=== PATIENT | male | born 1980 | race Caucasian/White ===

== ENCOUNTER 2024-10-19 10:31 | Outpatient (AMB) | payer MEDICARE, MEDICAID, SELFPAY ==
[2024-10-19 11:13] VITALS: BP 128/74; PULSE 73; RESP 18; O2SAT 100; BMI 28.3
--- NOTE | 2024-10-19 11:13 | MHC.OFFVIS ---
Vital Signs 10/19/24 11:13 Height 5 ft 11 in Weight 203 lb BMI 28.3 BP 128/74 Blood Pressure Location Lt brachial Respiration 18 Pulse 73 Pulse Source Pulse Oximeter Pulse Oximetry (%) 100 Oxygen Delivery Method Room Air Intake Visit Reasons: Chronic Low Back Pain w/ Left Sciatica Allergies No Known Allergies Allergy (Verified 10/19/24 11:17) HPI Comments Details: Meir is a very pleasant 44 years old gentleman who presents with my office with complaints of pain in lower back with radiation into the left lower extremity. She reports numbness in the left lower extremity in the posterior calf, he reports tingling burning and itching sensation on the solar surface of the left foot. 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 Because of his pain he can not sleep normally can not do activities of daily living he is able to take care of himself but he can not function normally. He is on permanent disability and retired because of psychological issues. He is self mobile. Weather changes aggravate his pain. Oral medications and application of the call make his pain better. The pain is constant and intermittent at the same time. In terms of tissue damage she describes his pain as pulsing, throbbing, pounding, stabbing, lancinating, sharp, cutting, laceration, pinching, cramping, crushing, tingling, stinging, dial, protein, heavy, tiring, exhausting, diet, squeezing, tearing sensation. Because of his pain he believes that he has left lower leg circumferences smaller than the right however in fact when we measured it his right lower leg circumference is 1-1/2 inch bigger. The full physical exam see is below. He had x-ray in [facility] which demonstrated L3-L4 and L4-5 disc space narrowing and minor spurring of the endplates at this levels, there is also facet arthropathy at this levels and no other findings. Chiropractic manipulations for 10 years, he is very active he is exercising playing basketball. He never received any injections. His past medical history significant for headaches, fatigue, dizziness and fainting, history of heavy drinking, history of gout related to alcohol intake. Nevro surgeries. He stopped smoking 6 months ago, he stopped drinking alcohol 6 years ago. He drinks coffee and caffeinated beverages and he denies recreational drugs. Review of Systems Const All systems reviewed & are unremarkable except as noted in HPI and below ENT Reports Normal hearing present Neuro Reports Normal hearing present, Denies Abnormal speech present and Denies Sensory deficit (Neuro) Physical Exam Vital Signs: Last Vital Signs Pulse 73 10/19/24 11:13 Resp 18 10/19/24 11:13 BP 128/74 10/19/24 11:13 Pulse Ox 100 10/19/24 11:13 Oxygen Delivery Method Room Air 10/19/24 11:13 BMI result Body Mass Index 28.3 Const General: no acute distress Nutritional Appearance: average body habitus, well nourished and other (Well-developed and athletic.) Orientation/consciousness: patient oriented x3 Eyes General: appearance normal, both eyes and all related structures Pupils: Equal, round and reactive pupils present EOM: EOMs intact bilaterally Neck Neck: Yes full ROM Chest Chest palpation & inspection: normal inspection of the chest Resp Effort & Inspection: normal respiratory effort, able to speak in complete sentences, normal respiratory pattern, no audible wheezes and no cough Cardio Jugular venous distension: no JVD GI Inspection: Yes normal to inspection Back/Spine/Pelvis Other: I able to stand on bilateral tiptoes in bilateral heels without difficulty. Able to dorsiflex both 1st toes without lifting the rest of the toes without difficulty. Flexing forward aggravate his pain. SLR on the left aggravates the pain. SLR on the right is negative. Oli test is negative, pelvic compression test is negative, Valsalva maneuver is negative for pain increase. On the palpation of the lumbar spine there is no tenderness on palpation for entire lumbar spine however patient reports severe tenderness on palpation in projection of approximately S1. The palpation of this area causes pain radiation all the way to the posterior surface of the left lower extremity to the surface of the left foot sole. Neuro General: patient oriented x3 and gait normal Cranial nerves: Yes CN's II-XII intact bilaterally, Yes Equal, round and reactive pupils present, Yes Normal hearing present and Yes Ability to bilaterally elevate shoulders present Speech: No Abnormal speech present Gait exam (Neuro): Normal gait present Motor exam (neuro): 5/5 motor strength present throughout Sensory Exam: No Sensory deficit (Neuro) Extrem General: No pedal edema Psych Speech and movement: Normal speech and movement present Affect: normal affect Attitude: cooperative Thought process: Normal thought process present Thought content: Normal thought content present Insight: Good insight present (Psych) Judgement: Good judgement present (Psych) Assessment & Plan Assessment & Plan (1) Spondylosis of lumbosacral spine with radiculopathy: Code(s): M47.27 - Other spondylosis with radiculopathy, lumbosacral region Category: Medical (2) Chronic pain syndrome: Code(s): G89.4 - Chronic pain syndrome Category: Medical (3) Radiculopathy, lumbosacral region: Code(s): M54.17 - Radiculopathy, lumbosacral region Category: Medical Plan With the diagnosis of radiculopathy of lumbosacral region I will send this patient for the MRI of the lumbar spine. I instructed the patient to give us a call and schedule appointment with me as soon as the MRI will be finished. I will examine the MRI and decide on whether further treatment with neurosurgeon required for this patient or we can try transforaminal epidural steroid injections. Possibility exists that this is just a unusual presentation of facet arthropathy and then he will be offered the treatment for spondylosis including medial branch blocks RFA face and or sprint PNS. Orders: Orders MR lumbar spine wo con Today M47.27 - Other spondylosis with radiculopathy, lumbosacral region, M54.17 - Radiculopathy, lumbosacral region Coding Level of Care Code New Pt Level 3 (57638) Diagnoses Spondylosis of lumbosacral spine with radiculopathy M47.27 Chronic pain syndrome G89.4 Radiculopathy, lumbosacral region M54.17
--- OUTSIDE RECORDS SUMMARY | 2024-10-19 11:55 | XMS_ITS | Clinical Summary ---
Author Organization [facility] [address] [facility] Address [address] [place] [phone] Phone Care Team Providers Care Direct Support Staff Name Role Phone Akshat Dean MD Primary Care Provider Allergies No known active allergies Medications cetirizine (ZyrTEC) 10 mg tablet TAKE 1 TABLET BY MOUTH EVERY DAY 90 tablet 1 4 Active fluticasone propionate (FLONASE) 50 mcg/actuation nasal spray 1 Archer by Nasal route daily. 4 Active buPROPion XL (WELLBUTRIN XL) 300 mg 24 hr tablet Take 1 tablet (300 mg total) by mouth 1 (one) time each day in the morning. 90 tablet 1 5 Active busPIRone (BUSPAR) 5 mg tablet TAKE 1 TABLET (5 MG TOTAL) BY MOUTH 3 (THREE) TIMES A DAY IF NEEDED (ANXIETY). 270 tablet 5 Active cyclobenzaprine (FLEXERIL) 10 mg tabletIndications: Spondylosis of lumbar region without myelopathy or radiculopathy Take 1 tablet (10 mg total) by mouth at bedtime as needed for muscle spasms. 30 tablet 3 5 Active gabapentin (NEURONTIN) 100 mg capsule Take 1 capsule (100 mg total) by mouth 2 (two) times a day. 60 each 3 5 Active levothyroxine (SYNTHROID, LEVOTHROID) 100 mcg tablet Take 1 tablet (100 mcg total) by mouth 1 (one) time each day. 90 each 1 Active Active Problems Problem Noted Date Diagnosed Date Transaminitis 11/12/2023 Anxiety and depression 03/29/2023 Allergic rhinitis 05/19/2021 Hypothyroidism 12/25/2020 Overview (01/26/2024): Positive antibodies History of alcohol abuse 09/22/2020 Overview (01/26/2024): Sober x 2.5 years Bipolar disorder, in partial remission, most recent episode depressed ([facility] V24, [facility] V28) 09/04/2020 Current every day smoker 09/04/2020 History of cocaine abuse ([facility] V24, [facility] V 28) 09/04/2020 Overview (01/26/2024): And Hx of crack cocaine use. Encounters Date Type Department Care Team Description 09/12/2024 Telephone Adult Medicine [address] [phone] Akshat Dean MD 08/29/2024 10:00 AM EDT Office Visit Adult Medicine [address] [phone] Akshat Dean MD Chronic left-sided low back pain with left-sided sciatica (Primary Dx); Acquired hypothyroidism; Transaminitis; Anxiety and depression; Spondylosis of lumbar region without myelopathy or radiculopathy from Last 3 Months Immunizations Name Administration Dates Next Due Influenza Quadravalent, MDCK , 0.5ml, preservative free (Flucelvax) 6mo and older 12/23/2020 Influenza trivalent, 0.5mL, preservative free (Fluarix; FluLaval; Fluzone) ages 6mo and older (Afluria) 3 years and older 10/26/2017,09/21/2016 Td Tetanus diptheria (Tdvax) 7yo and older 09/20 Surgical History Surgery Date Site/Laterality Comments OTHER SURGICAL HISTORY PROCEDURE: DENIES PREVIOUS SURGERY Medical History Medical History Date Comments Bipolar disorder ([facility] V24, [facility] V28) DX:Bipolar disorder (HCC) Family History Medical History Relation Name Comments Other: abuse Father Relation Name Status Comments Father Social History Tobacco Use Types Packs/Day Years Used Date Smoking Tobacco: Former Cigarettes Smokeless Tobacco: Never Alcohol Use Standard Drinks/Week Comments Not Currently 0 (1 standard drink = 0.6 oz pur e alcohol) Sex and Gender Information Value Date Recorded Sex Assigned at Not on file Legal Sex Male 6:01 AM EST Gender Identity Not on file Sexual Orientation Not on file Obstetrics History Last Filed Vital Signs Vital Sign Reading Time Taken Comments Blood Pressure 128/82 08/29/2024 9:40 AM EDT Pulse 64 08/29/2024 9:40 AM EDT Temperature 35.8 C (96.4 F) 08/29/2024 9:40 AM EDT Respiratory Rate 18 08/29/2024 9:40 AM EDT Oxygen Saturation - - Inhaled Oxygen Concentration - - Weight 92.1 kg (203 lb) 08/29/2024 9:40 AM EDT Height 180.3 cm (5' 11 ) 08/29/2024 9:40 AM EDT Body Mass Index 28.31 08/29/2024 9:40 AM EDT Plan of Treatment Upcoming Encounters Date Type Department Care Team (Late st Contact Info) Description 03/01/2025 10:30 AM EST Office Visit Adult Medicine [address] [phone] Akshat Dean MD [address] [place] [address] Health Maintenance Due Date Last Done Comments Hepatitis B Vaccines (1 of 3 - 19+ 3-dose series) 01/05/2000 HIV Screening 01/24/2022 Hepatitis C Screening 01/24/2022 Medicare Annual Wellness Visit 01/24/2022 Social Influencers of Health Screening 01/24/2022 Depression Screening 02/16/2024 COVID-19 Vaccine ( - 2023-2 5 season) 2024 Influenza Vaccine (#1) 2024 , 10/26/2017, 09/21/2016 Cholesterol Screening (Lipid Panel) 04/26/2028 04/27/2023 DTaP,Tdap,and Td Vaccines (2 - Td or Tdap) 09/20/2030 09/20/2020 HIB Vaccines Aged Out No longer eligi ble based on patient's age to complete this topic HPV Vaccines Aged Out No longer eligi ble based on patient's age to complete this topic Hepatitis A Vaccines Aged Out No long er eligible based on patient's age to complete this topic IPV Vaccines Aged Out No longer eligi ble based on patient's age to complete this topic MMR Vaccines Aged Out No longer eligi ble based on patient's age to complete this topic Meningococcal ACWY Vaccine Aged Out N o longer eligible based on patient's age to complete this topic Meningococcal B Vaccine Aged Out No l onger eligible based on patient's age to complete this topic Pneumococcal Vaccine: Pediatrics (0 to 5 Years) and At-Risk Patients (6 to 49 Years) Aged Out No longer eligible b ased on patient's age to complete this topic RSV Immunization Patients Under 20 months Aged Out No longer eligible b ased on patient's age to complete this topic Varicella Vaccines Aged Out No longer eligible based on patient's age to complete this topic Procedures Procedure Name Priority Date/Time Associated Diagnosis Comments TRIIODOTHYRONINE FREE Routine 08/29/2024 9:17 AM EDT Acquired hypothyroidism FREE THYROXINE WITH REFLEX TO FREE TRIIODOTHYRONINE Routine 08/29/2024 9:17 AM EDT Acquired hypothyroidism THYROID STIMULATING HORMONE WITH REFLEX TO FREE T4 AND FREE T3 Routine 08/29/2024 9:17 AM EDT Acquired hypothyroidism COMPREHENSIVE METABOLIC PANEL Routine 08/29/2024 9:17 AM EDT Transaminitis Anxiety and depression Spondylosis of lumbar region without myelopathy or radiculopathy LIPID PANEL Routine 04/27/2023 from Last 3 Months or Most Recently Relevant to Health Maintenance Results * (ABNORMAL) Thyroid stimulating hormone with reflex to free t4 and free t3 (08/29/2024 9:17 AM EDT) TSH 11.16(H) 0.40 - 4.00 mcIU/mL LAB CHEMISTRY METHOD 08/29/2024 3:13 PM EDT [facility] Blood Venous blood specimen / Unknown Venipuncture / Unknown 08/29/2024 9:17 AM EDT 08/29/2024 9:17 AM EDT Akshat Dean MD LAB BLOOD ORDERABLES Final Result Performing Organization Address City/[facility]/ZIP Co de Phone Number [facility] [address] [place] [address], [place] [phone] * Free thyroxine with reflex to free triiodothyronine (08/29/2024 9:17 AM EDT) Free T4 1.58 0.70 - 1.80 ng/dL LAB CHEMISTRY METHOD 08/29/2024 5:13 PM EDT [facility] Blood Venous blood specimen / Unknown Venipuncture / Unknown 08/29/2024 9:17 AM EDT 08/29/2024 9:17 AM EDT Akshat Dean MD LAB BLOOD ORDERABLES Final Result Performing Organization Address City/[facility]/ZIP Co de Phone Number [facility] [address] [place] [address], [place] [phone] * Triiodothyronine free (08/29/2024 9:17 AM EDT) T3, Free 279 230 - 420 pcg/dL LAB CHEMISTRY METHOD 08/29/2024 7:33 PM EDT [facility] Blood Venous blood specimen / Unknown Venipuncture / Unknown 08/29/2024 9:17 AM EDT 08/29/2024 9:17 AM EDT us Akshat Dean MD LAB BLOOD ORDERABLES Final Result [facility] [address] [place] [address], * Comprehensive metabolic panel (08/29/2024 9:17 AM EDT) Sodium 137 133 - 145 mmol/L LAB CHEMISTRY METHOD 08/29/2024 2:30 PM EDT [facility] Potassium 4.0 3.5 - 5.5 mmol/L LAB CHEMISTRY METHOD 08/29/2024 2:30 PM [facility] Chloride 104 96 - 110 mmol/L LAB CHEMISTRY METHOD 08/29/2024 2:30 PM [facility] CO2 28 21 - 32 mmol/L LAB CHEMISTRY METHOD 08/29/2024 2:30 PM [facility] Anion Gap 5 3 - 11 LAB CHEMISTRY METHOD 08/29/2024 2:30 PM [facility] Glucose 99 70 - 100 mg/dL LAB CHEMISTRY METHOD 08/29/2024 2:30 PM [facility] BUN 15 5 - 25 mg/dL LAB CHEMISTRY METHOD 08/29/2024 2:30 PM [facility] Creatinine 1.24 0.70 - 1.30 mg/dL LAB CHEMISTRY METHOD 08/29[facility]24 2:[facility] 74 >=60 mL/min/1. 73m2 LAB CHEMISTRY METHOD 08/29/2024 2:30 PM [facility] Comment:Calculation based on the Chronic Kidney Disease Epidemiology Collaboration (CKD-EPI) equation refit without adjustment for race. BUN/Creatinine Ratio 12.1 LAB CHEMISTRY METHOD 08/29/2024 2:30 PM [facility] Calcium 9.7 8.5 - 10.5 mg/dL LAB CHEMISTRY METHOD 08/29/2024 2:30 PM [facility] AST (SGOT) 28 10 - 42 unit/L LAB CHEMISTRY METHOD 08/29/2024 2:30 PM EDT [facility] ALT (SGPT) 26 10 - 60 unit/L LAB CHEMISTRY METHOD 08/29/2024 2:30 PM EDT [facility] Alkaline Phosphatase 96 42 - 121 unit/L LAB CHEMISTRY METHOD 08/29/2024 2:30 PM EDT [facility] Total Protein 7.3 6.0 - 8.0 g/dL LAB CHEMISTRY METHOD 08/29/2024 2:30 PM EDT [facility] Albumin 4.6 3.2 - 5.0 g/dL LAB CHEMISTRY METHOD 08/29/2024 2:30 PM EDT [facility] Total Bilirubin 0.4 0.0 - 1.4 mg/dL LAB CHEMISTRY METHOD 08/29/2024 2:30 PM EDT [facility] Blood Venous blood specimen / Unknown Venipuncture / Unknown 08/29/2024 9:17 AM EDT 08/29/2024 9:17 AM EDT Akshat Dean MD LAB BLOOD ORDERABLES Final Result [facility] [address] [place] [address], * (ABNORMAL) Lipid panel (04/27/2023) LDL/HDL Ratio 4 0 - 4 Triglycerides 131 0 - 150 mg/dL Cholesterol 139 0 - 200 mg/dL HDL 39(A) >=40 mg/dL LDL Cholesterol 74 0 - 100 mg/dL Blood Venous blood specimen / Unknown Damian Provider LAB BLOOD ORDERABLES Norah l Result from Last 3 Months or Most Recently Relevant to Health Maintenance Insurance MEDICARE MEDICAID - [place] Care Teams Direct Support Staff Relationship Specialty Start Date End Date Akshat Dean MD [address] [place] [address] PCP - General Internal Medicine 10/03/21
--- OUTSIDE RECORDS SUMMARY | 2024-10-19 11:55 | XMS_ITS ---
Author Name [facility] Organization Unknown Care Team Organization Name Specialty Phone Email Start Date End Da te [facility] Chandni Chambers Primary Care 07/24/2022 4 [facility] Hetal Batista Primary Care 02/23/2022 024
== END 2024-10-19 11:42 | disposition home or self-care (01) ==
LOC: HO.PMC 10:32
PROVIDERS: PCP Internal Medicine; Visit Provider Anesthesiology
DX: M47.27 Other spondylosis with radiculopathy, lumbosacral region (principal); G89.4 Chronic pain syndrome
CPT/HCPCS: 99203

== ENCOUNTER → 2024-10-19 10:31 | Outpatient (BNVA) | payer MEDICARE, MEDICAID, SELFPAY | PROVIDERS: PCP Internal Medicine; Visit Provider Anesthesiology | DX: M47.27 Other spondylosis with radiculopathy, lumbosacral region (principal); G89.4 Chronic pain syndrome | CPT/HCPCS: 99202 ==

== ENCOUNTER 2024-10-26 19:33 | Outpatient (REF) | payer MEDICARE, MEDICAID, SELFPAY ==
--- NOTE | ~2024-10-26 | MR_ITS ---
EXAMINATION: MR LUMBAR SPINE WITHOUT CONTRAST CLINICAL INFORMATION: M47.27. Other spondylosis with radiculopathy, lumbosacral region. COMPARISON: None available. TECHNIQUE: MRI of the lumbar spine was obtained using routine sequences without contrast. FINDINGS: Last rib-bearing vertebra labeled T12. Bone marrow STIR signal at the left pedicle, left facet and left transverse processes of L5. Decreased intervertebral disc height and signal at L4-5 and L5-S1. Multilevel small marginal osteophyte formation from T12-L1 to L5-S1. The alignment is normal. The conus medullaris ends at the intervertebral disc height L1-2 with normal signal. T12-L1: No central spinal canal or neuroforamina stenosis. L1-2: No herniated disc. No neuroforamina stenosis. L2-3: Broad-based disc bulging. Facet joint hypertrophy. Decreased AP diameter of the thecal sac. No neuroforamina stenosis. No compression upon neural elements. L3-4: Broad-based disc bulging. Facet joint and ligamentum flavum hypertrophy. Reduced AP diameter of the thecal sac and neuroforamina likely encroaching the neural elements. L4-5: Broad-based disc bulging. Facet joint and ligamentum flavum hypertrophy resulting in CSF effacement of the thecal sac central spinal canal stenosis and bilateral neuroforamina stenosis compressing the neural elements in both thecal sac and the L4 exiting nerve roots. L5-S1: Left central subarticular and foraminal broad-based herniated disc compressing the left S1 nerve root on its lateral recess and the left L5 nerve root at the neural foramen. There is CSF effacement of the thecal sac and compression of the neural elements of the thecal sac. Facet joint and ligamentum flavum flavum hypertrophy. Left neuroforamina stenosis. Right neuroforamina and narrowing. No prevertebral compartment hematoma, mass or fluid collection. MR/MR lumbar spine wo con IMPRESSION: Central/left subarticular and foraminal broad-based herniated disc at L5-S1 compressing the neural elements of the thecal sac and the left L5 nerve root. Central spinal canal stenosis and left greater than right neuroforamina stenosis at L5-S1 on a multifactorial basis. Central spinal canal and bilateral neuroforamina stenosis at L4-5 on a degenerative basis compressing the neural elements. Spondylosis L3-4. Electronically signed by: Peterson Mack MD 10/27/2024 07:08 AM EDT
== END 2024-10-26 19:34 | disposition home or self-care (01) ==
LOC: HO.MRI 19:33
PROVIDERS: PCP Internal Medicine; Visit Provider Anesthesiology
DX: M47.27 Other spondylosis with radiculopathy, lumbosacral region (principal)
CPT/HCPCS: 72148

== ENCOUNTER → 2024-10-26 19:39 | Outpatient (BNV) | payer MEDICARE, MEDICAID, SELFPAY | PROVIDERS: PCP Internal Medicine; Visit Provider Radiology Diagnostic Radiology | DX: M51.17 Intervertebral disc disorders with radiculopathy, lumbosacral region (principal) | CPT/HCPCS: 72148 ==

== ENCOUNTER 2024-11-02 13:35 | Outpatient (AMB) | payer MEDICARE, MEDICAID, SELFPAY ==
[2024-11-02 13:49] VITALS: BMI 27.9
--- NOTE | 2024-11-02 13:49 | HO.SPINEOV ---
Vital Signs 11/02/24 13:49 Height 5 ft 11 in Weight 200 lb BMI 27.9 Intake Visit Reasons: spinal stenosis Intake Note: Mr. Bob is here today c/o low back pain. 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 He is a very nice 44-year-old gentleman, presents for evaluation of 10 years of left leg pain. He does not recall a specific event when the pain started, but it has been gradually getting worse over time. He is very active, plays basketball quite a bit and generally just tries to get through it but the pain has been very intense lately, feels like fire going down his leg. He is still able to run and do some activities but it is under intense pain and he will have to compensate for that by taking lcqz-uxa-xqvchvb pain medications like ibuprofen, Tylenol etc.. He was recently started on steroids and muscle relaxers by his PCP. That did not do much. He has been seeing a chiropractor for years. He does not generally get much in the way of significant improvement but it does help some. He comes in today with an MRI showing severe stenosis at L3-4 and disc herniation on the left at L4-5. He has never done any formal physical therapy, has never had any injections. PMH: He has a history of hypothyroidism, he was an alcoholic but quit about 7 years ago. He reports being told at 1 point his liver enzymes were slightly elevated, and they can fluctuate but they are not significantly enough elevated to be considered cirrhosis. He has never had surgery. In other than that he has no systemic disease to report. Social hx: Quit smoking about a year ago, quit drugs and alcohol 7 years ago. Medications: Levothyroxine, cyclobenzaprine, Flonase, BuSpar and bupropion Allergies: No known drug allergies Physical exam: Awake alert oriented no acute distress, his gait is antalgic, strength is normal with decreased reflex at the Achilles and patella on the left. Positive straight leg raise at 30 degrees. Imaging review: Lumbar MRI done at [place] shows transitional anatomy, in terms of numbering, the radiologist is calling the bottom most disc S1-S2, but according to the vascular anatomy it looks more like a traditional L5-S1 so I am going to refer as the lowest disc being L5-S1. At L4-5 on the left he has a herniated disc compressing the left L5 nerve root, and moderate to severe stenosis at L3-4. Impression: 44-year-old male presents for evaluation of 10 years of progressively worsening left leg pain which radiates from his low back all the way down to his lateral thigh, anterior thigh as well as going into his calf. It feels like fire and burning with feelings of numbness in itchiness. 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 While he has done no formal physical therapy, Dr. Farrell and I looked at his films and feel and feel he would be a good candidate for left L3-4 decompression and left L4-5 microdiskectomy. We have tentatively scheduled him for December 12. The patient was given risk and benefits of surgery including but not limited to infection, hematoma, nerve injury, durotomy, weakness, bowel/bladder injury, persistent pain, recurrent disc herniation. We also discussed the option to continue with conservative treatment and patient wishes to proceed with surgery. They are aware they should stop NSAIDs 7 days prior to surgery. All questions were answered to the best of our ability. If there is anything about this patients medical history that we have overlooked or concerns you have about us proceeding with surgery we would appreciate any input you can offer Thank you for allowing us to care for your patient. The total time spent with this visit with this patient was 45 minutes reviewing history, physical exam, lumbar imaging review, and implementation of treatment plan or further diagnostic testing Segundo Farrell MD,PhD [facility] Coding Level of Care Code New Pt Level 4 (35969) Diagnoses Radiculopathy, lumbosacral region M54.17
--- OUTSIDE RECORDS SUMMARY | 2024-11-02 15:37 | XMS_ITS | Clinical Summary ---
Author Organization [facility] [address] [facility] Address [address] [place] [phone] Phone Care Team Providers Care Band Tumbler Name Role Phone Akshat Dean MD Primary Care Provider Allergies No known active allergies Medications cetirizine (ZyrTEC) 10 mg tablet TAKE 1 TABLET BY MOUTH EVERY DAY 90 tablet 1 4 Active fluticasone propionate (FLONASE) 50 mcg/actuation nasal spray 1 [place] by Nasal route daily. 4 Active buPROPion [...] in partial remission, most recent episode depressed ([facility] V24, [facility] V28) 09/04/2020 Current every day smoker 09/04/2020 History of cocaine abuse ([facility] V24, [facility] V 28) 09/04/2020 Overview (01/26/2024): And Hx of crack cocaine use. Encounters Date Type Department Care Team Description 09/12/2024 Telephone Adult Medicine [address] [phone] Akshat Dean MD 08/29/2024 10:00 AM EDT Office Visit Adult Medicine [address] [phone] Akshat Dean MD Chronic left-sided low back [...] History Medical History Date Comments Bipolar disorder ([facility] V24, [facility] V28) DX:Bipolar disorder (HCC) Family [...] 10:30 AM EST Office Visit Adult Medicine [address] [phone] Akshat Dean MD [address] [place] [address] Health Maintenance Due Date Last Done Comments [...] (2 - Td or Tdap) 09/20/2030 09/20/2020 RSV Immunization Adult Patients (1 - 1-dose 75+ series) 01/05/2056 HIB Vaccines Aged Out No longer eligi [...] Procedure Name Priority Date/Time Associated Diagnosis Comments EXTERNAL MRI REPORT 10/26/2024 EXTERNAL MRI REPORT 10/26/2024 TRIIODOTHYRONINE FREE Routine 08/29/2024 9:17 AM EDT [...] Recently Relevant to Health Maintenance Results * External MRI Report (10/26/2024) Only the most recent of2 resultswithin the time period is included. Anatomical Region Laterality Modality Magnetic Resonan ce Provider [facility] MRI PROCEDURES Final Result * (ABNORMAL) Thyroid stimulating hormone with reflex to free t4 and free t3 (08/29/2024 9:17 AM EDT) TSH 11.16(H) 0.40 - 4.00 mcIU/mL LAB CHEMISTRY METHOD 08/29/2024 3:13 PM EDT [facility] Blood Venous blood specimen / Unknown Venipuncture / Unknown 08/29/2024 9:17 AM EDT 08/29/2024 9:17 AM EDT Akshat Dean MD LAB BLOOD ORDERABLES Final Result [facility] [address] [place] [address], [place] [phone] * Free thyroxine with reflex to free triiodothyronine (08/29/2024 9:17 AM EDT) Free T4 1.58 0.70 - 1.80 ng/dL LAB CHEMISTRY METHOD 08/29/2024 5:13 PM EDT [facility] Blood Venous blood specimen / Unknown Venipuncture / Unknown 08/29/2024 9:17 AM EDT 08/29/2024 9:17 AM EDT Akshat Dean MD LAB BLOOD ORDERABLES Final Result [facility] [address] [place] [address], [place] [phone] * Triiodothyronine free (08/29/2024 9:17 AM EDT) T3, Free 279 230 - 420 pcg/dL LAB CHEMISTRY METHOD 08/29/2024 7:33 PM EDT [facility] Blood Venous blood specimen / Unknown Venipuncture / Unknown 08/29/2024 9:17 AM EDT 08/29/2024 9:17 AM EDT us Akshat Dean MD LAB BLOOD ORDERABLES Final Result [facility] [address] [place] [address], [place] [phone] * Comprehensive metabolic panel (08/29/2024 9:17 AM EDT) Sodium 137 133 - 145 mmol/L LAB CHEMISTRY METHOD 08/29/2024 2:30 PM [facility] Potassium 4.0 3.5 - 5.5 mmol/L [...] 08/29/2024 2:30 PM [facility] eGFR 74 >=60 mL/min/1. 73m2 LAB CHEMISTRY METHOD 08/29/2024 2:30 PM [facility] Comment:Calculation based on the Chronic Kidney Disease Epidemiology Collaboration (CKD-EPI) equation refit without adjustment for race. BUN/Creatinine Ratio 12.1 LAB CHEMISTRY METHOD 08/29/2024 2:30 PM EDT [facility] Calcium 9.7 8.5 - 10.5 mg/dL LAB CHEMISTRY METHOD 08/29/2024 2:30 PM [facility] AST (SGOT) 28 10 - 42 unit/L LAB CHEMISTRY METHOD 08/29/2024 2:30 PM T [facility] ALT (SGPT) 26 10 - 60 unit/L LAB CHEMISTRY METHOD 08/29/2024 2:30 PM T [facility] Alkaline Phosphatase 96 42 - 121 unit/L LAB CHEMISTRY METHOD 08/29/2024 2:30 PM [facility] Total Protein 7.3 6.0 - 8.0 g/dL LAB CHEMISTRY METHOD 08/29[facility]2024 2[facility] Albumin 4.6 3.2 - 5.0 g/dL LAB CHEMISTRY METHOD 08/29/2024 2:30 PM [facility] Total Bilirubin 0.4 0.0 - 1.4 mg/dL LAB CHEMISTRY METHOD 08/29/2024 2:30 PM T [facility] Blood Venous blood specimen / Unknown Venipuncture / Unknown 08/29/2024 9:17 AM EDT 08/29/2024 9:17 AM EDT us Akshat Dean MD LAB BLOOD ORDERABLES Final Result [facility] [address] [place] [address], * (ABNORMAL) Lipid panel (04/27/2023) LDL/HDL Ratio 4 0 - 4 Triglycerides 131 0 - 150 mg/dL Cholesterol 139 0 - 200 mg/dL HDL 39(A) >=40 mg/dL LDL Cholesterol 74 0 - 100 mg/dL Blood Venous blood specimen / Unknown us Historical Provider LAB BLOOD ORDERABLES Norah l Result from Last 3 Months or Most Recently Relevant to Health Maintenance Insurance MEDICARE MEDICAID - [place] Care Teams Band Tumbler Relationship Specialty Start Date End Date Akshat Dean MD [address] [place] [address] PCP - General Internal Medicine 10/03/21
== END 2024-11-02 14:54 | disposition home or self-care (01) ==
LOC: HO.HNS 13:36
PROVIDERS: PCP Internal Medicine; Referring Provider Anesthesiology; Visit Provider Physician Assistant
DX: M54.17 Radiculopathy, lumbosacral region (principal)
CPT/HCPCS: 99204

== ENCOUNTER → 2024-11-02 13:35 | Outpatient (BNVA) | payer MEDICARE, MEDICAID, SELFPAY | PROVIDERS: PCP Internal Medicine; Referring Provider Anesthesiology; Visit Provider Physician Assistant | DX: M54.17 Radiculopathy, lumbosacral region (principal) | CPT/HCPCS: 99202 ==

== ENCOUNTER 2024-12-06 05:55 | Day surgery (SDC) | payer MEDICARE, MEDICAID, SELFPAY ==
[2024-12-04 13:12] VITALS: BMI 27.9
--- NOTE | 2024-12-05 08:22 | HO.ANESPROP2 ---
Documented by User: Cydney Levine NP 12/05/24 08:23 HPI - Anesthesia Eval Consult details Narrative: 44yo M for Left Left L3-4, L4-5 Decompression and Left L4-5 Discectomy Hx polysub - none since age 37 Smoker PMFSH Active Problems Active Problems: All Active Problems Spinal stenosis (Acute) Radiculopathy, lumbosacral region (Acute) Chronic pain syndrome (Acute) Spondylosis of lumbosacral spine with radiculopathy (Acute) Past Medical History Medical History Hypothyroid Alcohol abuse Cocaine abuse Needle phobia Tobacco dependence Anxiety Depression Bipolar disorder Surgical History Surgical History Hx of wisdom tooth extraction Social History Social History Are you a primary health care technician to a significant other at home: No Do you presently have visiting nurse or other home services: No Patient Tobacco Use Status: Current everyday Tobacco user Tobacco use type: Cigarette Substance Use Type Other:: clean since age 37 Have you been hit, kicked, punched, or otherwise hurt by someone within the past year? If so, by whom?: No Spiritual Healthcare Practices: no Holiness Healthcare Practices: no Cultural Healthcare Practices: no Are you DNR?: No Advance Directives: No (states is primary contact) Advance Directives on File: No Poor oral hygiene: No (caps & missing teeth) Meds Allergies Allergy/AdvReac Type Severity Reaction Status Date / Time No Known Allergies Allergy Verified 12/06/24 06:02 Home Medications ?Medication ?Instructions ?Recorded ?Confirmed ?Last Taken ?Type bupropion HCl 300 mg 24 hr tablet, 300 mg PO QAM 09/19/24 12/04/24 Unknown History extended release (Wellbutrin XL) buspirone 5 mg tablet 5 mg PO TID 09/19/24 12/04/24 Unknown History cetirizine 10 mg capsule (Zyrtec) 10 mg PO DAILY PRN Allergy Symptoms 09/19/24 12/04/24 Unknown History cyclobenzaprine 10 mg tablet 10 mg PO BEDTIME 09/19/24 12/04/24 Unknown History fluticasone propionate 50 1 spray intranasal DAILY 09/19/24 12/04/24 Unknown History mcg/actuation nasal spray,suspension (Flonase Allergy Relief) levothyroxine 100 mcg tablet 100 mcg PO DAILY 12/04/24 12/04/24 12/06/24 History levothyroxine 88 mcg tablet 88 mcg PO QAM 12/04/24 12/04/24 12/06/24 History Exam Height,Weight and Vital Signs: Height 5 ft 11 in Weight 90.718 kg Assessment and Plan Assessment Anesthesia Assessment: Chart Reviewed Documented by User: Pollo Escamilla MD 12/06/24 08:30 PMFSH Past Medical History Medical History Hypothyroid Alcohol abuse Cocaine abuse Needle phobia Tobacco dependence Anxiety Depression Bipolar disorder Functional capacity: independent ambulation Family History Family history of problems with anesthesia: No Surgical History Surgical History Hx of wisdom tooth extraction History of Problems with Anesthesia: No Social History Social History Are you a primary health care technician to a significant other at home: No Do you presently have visiting nurse or other home services: No Patient Tobacco Use Status: Current everyday Tobacco user Tobacco use type: Cigarette Substance Use Type Other:: clean since age 37 Have you been hit, kicked, punched, or otherwise hurt by someone within the past year? If so, by whom?: No Spiritual Healthcare Practices: no Holiness Healthcare Practices: no Cultural Healthcare Practices: no Are you DNR?: No Advance Directives: No (states is primary contact) Advance Directives on File: No Poor oral hygiene: No (caps & missing teeth) Meds Allergies Allergy/AdvReac Type Severity Reaction Status Date / Time No Known Allergies Allergy Verified 12/06/24 06:02 Home Medications ?Medication ?Instructions ?Recorded ?Confirmed ?Last Taken ?Type bupropion HCl 300 mg 24 hr tablet, 300 mg PO QAM 09/19/24 12/04/24 Unknown History extended release (Wellbutrin XL) buspirone 5 mg tablet 5 mg PO TID 09/19/24 12/04/24 Unknown History cetirizine 10 mg capsule (Zyrtec) 10 mg PO DAILY PRN Allergy Symptoms 09/19/24 12/04/24 Unknown History cyclobenzaprine 10 mg tablet 10 mg PO BEDTIME 09/19/24 12/04/24 Unknown History fluticasone propionate 50 1 spray intranasal DAILY 09/19/24 12/04/24 Unknown History mcg/actuation nasal spray,suspension (Flonase Allergy Relief) levothyroxine 100 mcg tablet 100 mcg PO DAILY 12/04/24 12/04/24 12/06/24 History levothyroxine 88 mcg tablet 88 mcg PO QAM 12/04/24 12/04/24 12/06/24 History Exam Exam Date and Time: 12/06/24 Airway Mallampati Class: II TM Dist: >3cm Neck ROM: Full Loose/Missing/Broken Teeth: Yes (multiple missing teeth) Heart: rrr Lungs: ctab vesicular Assessment and Plan Assessment Anesthesia Assessment: Anesthesia Plan Discussed and Chart Reviewed Final Anesthetic Review Family History of Problems with Anesthesia: No History of Problems with Anesthesia: No NPO: Yes ASA Class: II Final Preanesthetic Review: No Changes in Pt Med Stat, Meds/Allgs Chart Reviewed, Consent Obtained/Reviewed and Anes Risks/Benef Reviewed Patient Risk: Low Procedure Risk: Intermediate Anesthetic Plan Anesthetic Plan: GA Disposition: Standard PACU
[2024-12-06] VITALS (7 sets, daily range): BP systolic 88–136; BP diastolic 61–87; PULSE 68–108; RESP 12–18; TEMP 36.1–36.6; O2SAT 96–100; BMI 27.6
--- NOTE | ~2024-12-06 | FL_ITS ---
EXAMINATION: FL GUIDANCE ONLY HISTORY: LEFT L3-5 DECOMPRESSION COMPARISON: Correlation is made with an MRI of the lumbar spine dated 10/26/2024. TECHNIQUE: Fluoroscopy time: 5.5 seconds. Cumulative Dose: 3.1734 mGy. DAP: 1.0313 Gycm2 Images: 1. FINDINGS: A single fluoroscopic spot film of the lumbar spine in the lateral projection demonstrates a probe at the L4-5 level. FL/FL guidance in OR IMPRESSION: Fluoroscopy during procedure. Please see procedure report for additional information. Electronically signed by: Talon Hogan MD 12/06/2024 10:02 AM EDT
[2024-12-06] MEDS: Lactated Ringers 1,000 ML 100 ML IVCONT (06:20)
--- NOTE | 2024-12-06 06:57 | MHC.SHP ---
Pre-Procedural Eval Section A - 24 Hr Update-Section A only Date of Service: 12/06/24 Section B - Complete if H&P > 30 days Chief Complaint: Radiculopathy, lumbosacral region Allergies: Allergies Allergy/AdvReac Type Severity Reaction Status Date / Time No Known Allergies Allergy Verified 12/06/24 06:02 Review of Systems Sugical H&P ROS: Negative: Constitution, Cardiovascular, Respiratory, Neurological, Psychiatric, Hem-Onc, Allergic/Immunologic, Gastrointestinal, Genitourinary, Musculoskeletal, Integumentary, Endocrine and Eyes/Ears/Nose/Throat Exam Surgical H&P Exam: Not Evaluated: HEENT, Not Evaluated: Heart, Not Evaluated: Lungs, Not Evaluated: Extremities, Not Evaluated: Abdomen, Not Evaluated: Skin and Not Evaluated: Neurological Exam Comment: The patient is awake, alert, no acute distress. Proposed surgical incision site is clean, dry, with no signs of recent trauma. Plan Diagnosis/Plan: Unchanged I have reviewed the history and physical and performed a pertinent physical examination on my patient. No changes have occurred unless specified. Plan remains the same, left L3-4 decompression and left L4-5 microdiskectomy. Time Spent With Patient Time: Total time managing care of this patient today __9__ minutes.
--- NOTE | 2024-12-06 09:15 | PM.DS ---
DS: Providers Provider Date of Service: 12/06/24 Date of discharge: 12/06/24 Primary care physician: Akshat Dean MD DS: Summary Time Attestation Discharge Coordination Time (in mins): 12 Quality: Safe Use of Opioids Does Pt have an Active Cancer Diagnosis on the Problem List?: No Quality: Stroke Does the patient have a stroke diagnosis?: No Physical Exam Vital Signs: Vital Signs: Last Vital Signs Temp 97.9 F 12/06/24 06:23 Pulse 68 12/06/24 06:23 Resp 18 12/06/24 06:23 BP 121/75 12/06/24 06:23 Pulse Ox 96 12/06/24 06:23 O2 Del Method Room Air 12/06/24 06:23 BMI result Body Mass Index 27.6 Discharge Plan Discharge Patient Disposition: Home, Self-Care Referrals: Akshat Dean MD [Primary Care Provider, Internal Medicine] - 1 Week Discharge Medications: New oxycodone 5 mg tablet 5 mg PO Q6H PRN (Reason: pain) Qty: 20 0RF Rx Instructions: Partial Fill upon patient request. Continued levothyroxine 100 mcg tablet 100 mcg PO DAILY levothyroxine 88 mcg tablet 88 mcg PO QAM cyclobenzaprine 10 mg tablet 10 mg PO BEDTIME buspirone 5 mg tablet 5 mg PO TID fluticasone propionate [Flonase Allergy Relief] 50 mcg/actuation spray,suspension 1 spray intranasal DAILY Rx Instructions: administer into each nostril bupropion HCl [Wellbutrin XL] 300 mg tablet extended release 24 hr 300 mg PO QAM Zyrtec 10 mg capsule 10 mg PO DAILY PRN (Reason: Allergy Symptoms) Discharge Orders: Discharge Order (Routine); Ordered 12/06/24 Ordered By: Bridger Finley Diet: Advance to usual diet Activity on Discharge: As tolerated Activity Restrictions/Additional Instructions: After your spinal surgery we ask you to observe the following restrictions/guidelines: Activity: It is normal to feel some discomfort as you increase your activity, but that will improve with time. We ask you avoid heavy lifting or acitivities that cause pain. As a general rule, 8lbs is a safe limit for lifting right after surgery. Walk as much as you feel comfortable but not to exhaustion. You will feel extra tired the first few days after surgery. Stay well hydrated. It is OK to walk up and down stairs You may return to driving when you are off narcotics (such as vicodin, oxycodone, dilaudid, etc), and you are back to normal functional capacity. If you have any concerns please check with office before driving. Return to work is specific to each patient and each surgery, so please speak with your doctor/PA at first follow up. Please bring paperwork such as FMLA at that time if you need it filled out. Medications: We recommend you take 500mg Tylenol every 4 hours for the first week after surgery, if you do not have any liver issues and can tolerate this medication. Do not exceed 4,000mg daily. We also recommend you take Ibuprofen 600mg every 8 hours for the first week after surgery starting on post op day 1, ?if you do not have any kidney or sugar control issues and can tolerate this medication. Do not exceed 2,000mg daily. We will give you a short supply of narcotics after surgery (usually one weeks worth). If you need more please call the office but do not use more than prescribed. You will need to give our office 48 hours notice if you need narcotics refilled and we do not fill narcotics on weekends or evenings. If you are on a narcotic, it is a good idea to take a stool softener such as colace or senna to avoid constipation If you take blood thinner such as aspirin, Plavix, Coumadin, Effient, Eliquis etc for conditions such as Afib, DVT, Pulmonary embolus, coronary disease, stents etc please speak with your surgeon about specific details as to when you can resume these medications. You can resume NSAIDs on post op day 1 (eg: Motrin, Naproxen, etc). Follow up: Please call the office, , after surgery to arrange a 3 week follow up for wound check. Wound Care: You may remove your dressing on the first day after surgery. ?You may ?leave open to air. Please do not remove the steri strips underneath. they will fall off on their own in one week. IT IS NORMAL FOR THE WOUND TO OOZE OR BE BLOODY FOR A FEW DAYS AFTER SURGERY. ?IF THIS HAPPENS JUST PLACE NEW DRESSING OVER IT TO AVOID STAINING CLOTHES. You may shower on post op day # 1 We ask that you do not let the water soak the wound. If it does get wet, just towel dry lightly. Please do not scrub your incision or place any type of chemical/ointment on the wound. No tub baths, pools or jacuzzis for one month. If you have any leaking or redness from your wound, or fevers, please call the office. Print Language: Azerbaijani
--- NOTE | 2024-12-06 09:17 | W.PM.OPN ---
Operative Note Operative Note Date of Service: 12/06/24 Narrative: Preoperative Diagnosis: Left L3-4, L4-5 spinal stenosis/lateral recess stenosis Operation: Left L3-4, L4-5 Laminotomy, Partial facetectomy, including a diskectomy at L4-5 with use of microscope Consent Informed Consent was obtained for this operation. I have explained the nature, purpose and benefits of the operation. I have discussed the risks and benefit of the operation including possible complications or adverse events with patient/family. Alternative(s) were discussed with the patient with their relative benefits and risks as well as the consequences of not accepting the operation were included in obtaining consent. Surgeon: ELISE STILES MD, PHD Procedure Assisted By: Bridger Alexis Description of Procedure This 44-year-old male is suffering from a left lumbar radiculopathy. MRI shows L3-4 lateral recess stenosis and L4-5 lateral recess stenosis with a paracentral disc herniation at L4-5.. The patient was offered a decompression. The procedure complications were explained. The patient was consented. The patient was brought to the operating room and endotracheally intubated. The patient was turned in prone position on the Antione frame. Prep and drape was done followed by timeout. The Physician payroll assistant provided access. A mid lumbar incision was made followed by release of the paravertebral muscle on the left side to expose the L3-L5 lamina and facet joints. An intraoperative x-ray was obtained to confirm the correct level. The microscope was brought in. I took over the procedure. The high-speed drill was used to do a left L3-4 laminotomy until flavum ligament was reached.ield. A #2 Kerrison was used to expand the laminotomy near flush to the pedicles and to include a partial facetectomy. It was tough to open up the flavum ligament due to its consistency. Finally I was able to perforate the flavum ligament with a 4. Penf The flavum ligament was opened and resected with a #2 Kerrison to decompress the underlying thecal sac. The flavum ligament was removed to decompress the lateral recess and the exiting L4 nerve roots. A long nerve hook could be easily passed along the medial side of the pedicle as a sign of adequate decompression. Attention was turned to the L4-5 segment. A left L4-5 hemilaminotomy was done. The flavum ligament was opened and significant amounts of epidural fat were removed. The L5 nerve root was identified. Significant hypertrophied ligament was resected from the lateral recess to decompress the L5 nerve root. I did perform an annulotomy and removed a few fragments but the large disc herniation seen on MRI was not found. A long nerve hook could be easily passed under the L5 nerve root as a sign of adequate decompression. The microscope was removed. Hemostasis was done. The physician payroll assistant close the Incision in 2 layers. Steri-Strips were used to approximate incision. An OpSite with Tegaderm was used to cover the incision. All sponge needle counts were correct. Patient was extubated and transported in stable is to recovery room. Anesthesia: General Estimated Blood Loss (ml): 10 Complications: None Duration of Surgery: 80 minutes Postoperative Plan: Discharge to home
== END 2024-12-06 10:39 | disposition home or self-care (01) ==
PROVIDERS: PCP Internal Medicine; Visit Provider Neurological Surgery
PROC: (CPT 63047; principal; 2024-12-06 07:30)
DX: M51.16 Intervertebral disc disorders with radiculopathy, lumbar region (principal); M48.061 Spinal stenosis, lumbar region without neurogenic claudication; M79.605 Pain in left leg; R20.0 Anesthesia of skin; E03.9 Hypothyroidism, unspecified; F10.11 Alcohol abuse, in remission; F14.11 Cocaine abuse, in remission; Z79.899 Other long term (current) drug therapy; Z87.891 Personal history of nicotine dependence
CPT/HCPCS: 63047; 63048; J0131; J0690; J1100; J1171; J1790; J1885; J2003; J2250; J2405; J2704; J3010

== ENCOUNTER → 2024-12-06 05:55 | Outpatient (BNV) | payer MEDICARE, MEDICAID, SELFPAY | PROVIDERS: PCP Internal Medicine; Visit Provider Physician Assistant | DX: M54.16 Radiculopathy, lumbar region (principal) | CPT/HCPCS: 63047; 63048; 99499 ==

== ENCOUNTER 2024-12-27 13:19 | Outpatient (AMB) | payer MEDICARE, MEDICAID, SELFPAY ==
--- NOTE | 2024-12-27 13:05 | A.SPINEOV_ITS ---
Intake Visit Reasons: 1st post op Intake Note: Mr. Bob is here today for his 1st post op. Supervisor Porcelain Department Required: No Allergies No Known Allergies Allergy (Verified 12/27/24 13:41) Assessment & Plan Assessment & Plan (1) S/P lumbar microdiscectomy: Code(s): Z98.890 - Other specified postprocedural states Category: Surgical Plan Procedure: Left L3-4, L4-5 Laminotomy, Partial facetectomy, including a diskectomy at L4-5 Meir is a pleasant 44 year old male who comes in today for his 1st postoperative visit after having the above-mentioned procedure completed by Dr. Farrell few weeks ago. He reports that overall he has been doing well since his surgery, his left lower extremity numbness and pain has resolved. He occasionally will get flare-ups of pain with increased activity such as walking for prolonged periods of time, but overall feels his symptoms have very much so improved. He asked several questions regarding the postoperative healing course, all of which I answered to the best of my ability. No new neurological deficits. The patient ambulates well and rises from a seated position without difficulty. Her posterior incision site is closed and well healing. I would like to follow up with Meir again in 6 weeks for his 2nd postoperative visit. Bridger Farrell MD,PhD [facility] Coding Level of Care Code Global (99692) Diagnoses S/P lumbar microdiscectomy Z98.890
--- OUTSIDE RECORDS SUMMARY | 2024-12-27 16:04 | XMS_ITS | Encounter Summary ---
Author Organization [facility] Address [address] [place] [address] Care Team Providers Care Chamber Magistrate Name Role Phone Akshat Dean MD Primary Care Provider [phone] Reason for Visit * Reason Onset Date Comments Forms/questionnaires 12/26/2024 [place] Care Encounter Details Date Type Department Care Team ([facility] st Contact Info) Description 12/26/2024 Telephone Adult Medicine [address] [phone] Akshat Dean MD [address] [place] [address] Social History Tobacco Use Types Packs/Day Years Used Date Smoking Tobacco: Former Cigarettes Smokeless Tobacco: Never Alcohol Use Standard Drinks/Week Comments Not Currently 0 (1 standard drink = 0.6 oz pur e alcohol) Sex and Gender Information Value Date Recorded Sex Assigned at Not on file Legal Sex Male 6:01 AM EST Gender Identity Not on file Sexual Orientation Not on file documented as of this encounter Progress Notes * Akshat Dean MD - 12/26/2024 6:49 PM EST Once I get the form on my desk then I can review it. * Preston Schmidt - 12/26/2024 3:57 PM EST Waiting to receive expected form. Attached is DELANEY. documented in this encounter Plan of Treatment Upcoming Encounters Date Type Department Care Team (Late st Contact Info) Description 02/07/2025 9:00 AM EST Office Visit Orthopedic Surgery [facility] [address] [facility] [address] [place] [address] Alli Pringle MD [address] [place] [address] 03/01/2025 10:30 AM EST Office Visit Adult Medicine [address] [phone] Akshat Dean MD [address] [place] [address] documented as of this encounter Visit Diagnoses Not on filedocumented in this encounter Care Teams Chamber Magistrate Relationship Specialty Start Date End Date Akshat Dean MD [address] [place] [address] PCP - General Internal Medicine 10/03/21 documented as of this encounter
--- OUTSIDE RECORDS SUMMARY | 2024-12-27 16:04 | XMS_ITS | Clinical Summary ---
Author Organization [facility] [address] [place] [address] [place] [phone] Phone Care Team Providers Care Pharmacy Affairs Assistant Name Role Phone Akshat Dean MD Primary Care Provider [phone] Allergies No known active allergies Medications cetirizine (ZyrTEC) 10 mg tablet TAKE 1 TABLET BY MOUTH EVERY DAY 90 tablet 1 4 Active fluticasone propionate (FLONASE) 50 mcg/actuation nasal spray 1 [place] by Nasal route daily. 4 Active buPROPion XL (WELLBUTRIN XL) 300 mg 24 hr tablet Take 1 tablet (300 mg total) by mouth 1 (one) time each day in the morning. 90 tablet 1 5 Active cyclobenzaprine (FLEXERIL) 10 mg tabletIndications: [...] (one) time each day. 90 each 1 5 Active busPIRone (BUSPAR) 5 mg tablet TAKE 1 TABLET BY MOUTH 3 TIMES A DAY IF NEEDED FOR ANXIETY. 270 tablet 1 09/23/202 5 Active Active Problems Problem Noted Date Diagnosed Date Transaminitis 11/12/2023 Anxiety and depression 03/29/2023 Allergic rhinitis 05/19/2021 Hypothyroidism 12/25/2020 Overview (01/26/2024): Positive antibodies History of alcohol abuse 09/22/2020 Overview (01/26/2024): Sober x 2.5 years Bipolar disorder, in partial remission, most recent episode depressed ([facility] V24, [facility] V28) 09/04/2020 Current every day smoker 09/04/2020 History of cocaine abuse ([facility] V24, [facility] V 28) 09/04/2020 Overview (01/26/2024): And Hx of crack cocaine use. 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 Acute pain of left shoulder (Primary Dx) from Last 3 Months Immunizations Immunization Administration Dates Next Due Influenza Quadravalent, MDCK , 0.5ml, preservative free (Flucelvax) 6mo and older 12/23/2020 Influenza trivalent, 0.5mL, preservative free (Fluarix; FluLaval; Fluzone) ages 6mo and older (Afluria) 3 years and older 10/26/2017,09/21/2016 Td Tetanus diptheria (Tdvax) 7yo and older 09/20 Surgical History Surgery Date Site/Laterality Comments OTHER SURGICAL HISTORY PROCEDURE: DENIES PREVIOUS SURGERY Medical History Medical History Date Comments Bipolar disorder ([facility] V24, [facility] V28) DX:Bipolar disorder ([facility]) Family History Medical History Relation Name Comments [...] Sign Reading Time Taken Comments Blood Pressure 137/79 11/06/2024 2:38 PM EDT Pulse 81 11/06/2024 2:38 PM EDT Temperature 36.6 C (97.9 F) 11/06/2024 2:38 PM EDT Respiratory Rate 18 08/29/2024 9:40 AM EDT Oxygen Saturation 96% 11/06/2024 2:38 PM EDT Inhaled Oxygen Concentration - - Weight 90.7 kg (200 lb) 11/15/2024 1:07 PM EDT Height 180.3 cm (5' 11 ) 11/15/2024 1:07 PM EDT Body Mass Index 27.89 11/15/2024 1:07 PM EDT Plan of Treatment Upcoming Encounters Date Type Department Care Team (Late st Contact Info) Description 02/07/2025 9:00 AM EST Office Visit Orthopedic Surgery - [place] [address] [facility] [address] [place] [phone] Alli Pringle MD 175 [place] [address] 03/01/2025 10:30 AM EST Office Visit Adult Medicine [address] [address] Akshat Dean MD [address] [place] [address] Health Maintenance Due Date Last Done Comments Hepatitis B Vaccines (1 of 3 - 19+ 3-dose series) 01/05/2000 HPV Vaccines (1 - 3-dose SCDM series) 01/05/2008 HIV Screening 01/24/2022 Hepatitis C Screening 01/24/2022 Medicare Annual Wellness Visit 01/24/2022 Social Influencers of Health Screening 01/24/2022 Depression Screening 02/16/2024 COVID-19 Vaccine ( season) 2024 Influenza Vaccine (#1) 2024 , 10/26/2017, 09/21/2016, Additional history exists Cholesterol Screening (Lipid Panel) 04/26/2028 04/27/2023 DTaP,Tdap,and Td Vaccines (3 - Td or Tdap) 09/20/2030 09/20/2020, 09/27/2009 RSV Immunization Adult Patients (1 - 1-dose [...] 49 Years) Aged Out No longer eligible based on patient's age to complete this topic RSV Immunization Patients Under 20 months Aged Out No longer eligible based on patient's age to complete this topic Varicella Vaccines Aged Out No longer eligible based on patient's age to complete this topic Procedures Procedure Name Priority Date/Time Associated Diagnosis Comments EXTERNAL XRAY REPORT 12/06/2024 EXTERNAL XRAY REPORT 12/06/2024 NM ARTHROCENTESIS/ASPI RATION/INJECTION MAJOR JOINT/BURSA W/O U/S GUIDANCE Routine 11/15/2024 1:00 PM EDT Bilateral calcific tendinitis of shoulders XR SHOULDER 2+ VIEWS BILAT Routine 11/15/2024 12:57 PM EDT Bilateral shoulder pain, unspecified chronicity EXTERNAL MRI REPORT 10/26/2024 EXTERNAL MRI REPORT 10/26/2024 LIPID PANEL Routine 04/27/2023 from Last 3 Months or Most Recently Relevant to Health Maintenance Results * External Xray Report (12/06/2024) Only the most recent of2 resultswithin the time period is included. Anatomical Region Laterality Modality Radiographic Enriqueta ging us Provider [facility] IMG XR PROCEDURES Final Result * NM ARTHROCENTESIS/ASPIRATION/INJECTION MAJOR JOINT/BURSA W/O U/S GUIDANCE (11/15/2024 1:00 PM EDT) Narrative Alli Pringle MD - 11/15/2024 1:00 PM EDT Alli Pringle MD 11/15/2024 4:32 PM L Inj/Asp: bilateral subacromial bursa Indications: pain Details: 22 G needle, posterior approach Medications (Right): 40 mg triamcinolone acetonide 40 mg/mL Medications (Left): 40 mg triamcinolone acetonide 40 mg/mL Outcome: tolerated well, no immediate complications Site was prepped in standard fashion using alcohol swab, sterile technique was used to perform the injection, the patient tolerated the procedure well and a band-aid dressing was applied Informed Consent: Site: Subacromial Laterality: Bilateral Relevant images/test results available and reviewed: yes Health status cleared: Yes Procedure/treatment, purpose, treatment alternatives, risks/potential complications and benefits explained: yes Risk/complications/benefits details: Risk/complications/benefits details: Risks and benefits of corticosteroid injection were discussed, including risk of pain, bleeding, infection, tissue attenuation, tendon rupture, changes in skin color, and injury to surrounding structures such as arteries, veins and nerves. We also discussed the patient may develop worsening pain for a few days before having improvement in their symptoms. Patient questions answered: yes Patient agrees, verbalizes understanding, and wants to proceed: yes Consent given by: Patient Informed consent discussion completed by Physician/CHELSI with patient: Verbal Pre-procedure timeout performed: yes Result [facility] Alli Pringle MD IN CLINIC/BEDSIDE ORDERABLES Fin al Result * XR Shoulder 2+ Views bilat (11/15/2024 12:57 PM EDT) Anatomical Region Laterality Modality Upper Extremities, Shoulder Bilateral Comp uted Radiography Narrative 11/15/2024 1:13 PM EDT 4 view x-rays of the bilateral shoulders show: On the left there is no evidence of fracture or dislocation. Mild degenerative changes at the acromioclavicular joint. Soft tissue shadows show a faint radiopaque density in the soft tissues lateral to the greater tuberosity which may represent calcific tendinitis or soft tissue calcification.. Glenohumeral joint space appears congruent without significant degenerative changes. On the right there is no evidence of acute fracture or dislocation. The glenohumeral joint space is well-preserved. Degenerative changes at the acromioclavicular joint. There is a radiopaque density in the soft tissues overlying the greater tuberosity which represents likely calcific tendinitis. Impression: Bilateral calcific tendinitis Result [facility] Alli Pringle MD IMG XR PROCEDURES Final Result * External MRI Report (10/26/2024) Only the most recent of2 resultswithin the time period is included. Anatomical Region Laterality Modality Magnetic Resonan ce Result [facility] IMG MRI PROCEDURES Final Result * (ABNORMAL) Lipid panel (04/27/2023) LDL/HDL Ratio 4 0 - 4 Triglycerides 131 0 - 150 mg/dL Cholesterol 139 0 - 200 mg/dL HDL 39(A) >=40 mg/dL LDL Cholesterol 74 0 - 100 mg/dL Blood Venous blood specimen / Unknown Result [facility] Damian Stevens MD LAB BLOOD ORDERABLES Norah l Result from Last 3 Months or Most Recently Relevant to Health Maintenance Insurance MEDICARE MEDICAID - [place] Care Teams Pharmacy Affairs Assistant Relationship Specialty Start Date End Date Akshat Dean MD [address] [place] [address] PCP - General Internal Medicine 10/03/21
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
== END 2024-12-27 14:09 | disposition home or self-care (01) ==
LOC: HO.HNS 13:19
PROVIDERS: PCP Internal Medicine; Visit Provider Physician Assistant
DX: Z98.890 Other specified postprocedural states (principal)
CPT/HCPCS: 99024

== ENCOUNTER → 2024-12-27 13:19 | Outpatient (BNVA) | payer MEDICARE, MEDICAID, SELFPAY | PROVIDERS: PCP Internal Medicine; Visit Provider Physician Assistant | DX: M54.50 Low back pain, unspecified (principal); Z98.890 Other specified postprocedural states; Z47.89 Encounter for other orthopedic aftercare | CPT/HCPCS: 99212 ==

== ENCOUNTER 2025-01-29 09:37 | Outpatient (AMB) | payer MEDICARE, MEDICAID, SELFPAY ==
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
== END 2025-01-29 10:30 | disposition home or self-care (01) ==
LOC: HO.HNS 09:38
PROVIDERS: PCP Internal Medicine; Visit Provider Physician Assistant
DX: Z98.890 Other specified postprocedural states (principal)
CPT/HCPCS: 99024

== ENCOUNTER → 2025-01-29 09:37 | Outpatient (BNVA) | payer MEDICARE, MEDICAID, SELFPAY | PROVIDERS: PCP Internal Medicine; Visit Provider Physician Assistant | DX: Z47.89 Encounter for other orthopedic aftercare (principal); Z98.890 Other specified postprocedural states | CPT/HCPCS: 99212 ==